=== PATIENT | female | born 1990 | race African-American/Black ===

== ENCOUNTER 2021-01-18 16:44 | Emergency (ER) | payer SELFPAY ==
--- NOTE | 2021-01-18 16:54 | ED.GENADULT ---
HPI - General Adult General Chief complaint: Skin/Abscess/Foreign Body Stated complaint: Breat Pain Time Seen by Provider: 01/18/21 16:54 Source: patient and RN notes reviewed Mode of arrival: ambulatory Limitations: no limitations History of Present Illness HPI narrative: 31 yo female presents to the [facility] with complaints of breast pain and a 2 cm red warm raised area to the bottom portion of breast approximately 6:00. Also has multiple cysts in the left axilla. Has not had any treatment in the past. Denies fevers. Related Data Allergies Allergy/AdvReac Type Severity Reaction Status Date / Time No Known Allergies Allergy Verified 01/18/21 17:08 Review of Systems Review of Systems: All systems reviewed & are unremarkable except as noted in HPI and below Constitutional: Constitutional: Reports no additional constitutional complaints, Denies chills and Denies fever(s) Eyes: Eyes: Reports no additional eye complaints ENT: Reports system reviewed and no additional complaints, except as documented Cardiovascular: Cardiovascular: Reports no additional cardiovascular complaints Respiratory: Respiratory: Reports no additional respiratory complaints Musculoskeletal: Musculoskeletal: Reports no additional musculoskeletal complaints Integumentary/Breasts: Skin/Breast: Reports as per HPI and Reports erythema (Left breast 6:00) Neurologic: Reports system reviewed and no additional complaints, except as documented Psychiatric: Psychiatric: Reports no additional psychiatric complaints Allergic/Immunologic: Allergic/Immunologic: Reports no additional allergic/immunologic complaints PMFSH Past Medical History Medical History (Updated 01/18/21 @ 19:50 by Talita Garcia) No significant past medical history Surgical History Surgical History (Updated 01/18/21 @ 19:50 by Talita Garcia) No significant past surgical history Social History Social History (Updated 01/18/21 @ 19:50 by Talita Garcia) Living arrangements: with family Comments At the time of my signature, I reviewed and agree with the nursing past medical, surgical, social, and family history. There is no relevant family history pertinent to the patient complaint. Exam Const: General: alert, awake and acute distress mild Nutritional Appearance: well nourished and obese Orientation/consciousness: patient oriented x3 Limitations: no limitations HENMT: Head: normal to inspection Eyes: Conjunctivae: conjunctivae normal Pupils: Equal, round and reactive pupils present Neck: Neck: normal visual inspection, no lymphadenopathy and no meningeal signs Chest: Chest palpation & inspection: normal inspection of the chest Resp: Effort & Inspection: normal respiratory effort Auscultation: clear to auscultation bilaterally Cardio: Rate: regular rate Rhythm: regular rhythm Back/Spine/Pelvis: Back: no CVA tenderness Skin: Other: Redness, warmth 6:00 left breast measuring 2 cm with fluctuance. Multiple cysts noted left axilla. Neuro: General: patient oriented x3, moves all extremities, no meningeal signs and no focal motor deficits Speech: normal speech Gait exam (Neuro): Normal gait present Extrem: General: normal to inspection Psych: Appearance: grossly normal and well kempt Mental Status: mental status grossly normal Affect: normal affect Attitude: cooperative Thought content: Yes Normal thought content present Course Course Emergency Course: Discharge instructions reviewed with patient, as well as provided in writing per nursing staff. The instructions also include specific and strict return/GO TO THE ER as well as f/u information. All questions have been answered, and the patient deny any further questions with discharge and discharge plan. Vital Signs Vital signs: Vital Signs Temperature 97.4 F L 01/18/21 16:55 Pulse Rate 79 01/18/21 16:55 Respiratory Rate 16 01/18/21 16:55 Blood Pressure 134/77 01/18/21 16:55 Pulse Ox
[2021-01-18 16:55] VITALS: BP 134/77; PULSE 79; RESP 16; TEMP 36.3; O2SAT 100
== END 2021-01-18 17:30 | disposition home or self-care (01) ==
PROVIDERS: Emergency Provider Nurse Practitioner
DX: L03.818 Cellulitis of other sites (principal); L73.2 Hidradenitis suppurativa
CPT/HCPCS: 10060; 87070; 87075; 87076; 87205; 99213; G0463

== ENCOUNTER 2021-01-25 19:59 | Emergency (ER) | payer OTHER, SELFPAY ==
--- NOTE | ~2021-01-25 | XR_ITS ---
XR lumbar spine 2-3V 01/25/2021 21:31 Indication: Low back pain Procedure: 3 views lumbar spine Comparison: No prior studies for comparison. Findings: Vertebral body heights are maintained. No fracture, subluxation or dislocation. No evidence for spondylolysis or spondylolisthesis. Pedicles intact. Sacral foramen are symmetric. Impression: 1: No acute abnormality of the lumbar spine. Reviewed, dictated and finalized at location A. [employer] Impression: 1: No acute abnormality of the lumbar spine.
[2021-01-25 20:13] VITALS: BP 118/82; PULSE 85; RESP 18; TEMP 37.1; O2SAT 96
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
[2021-01-25] MEDS: KETOROLAC 30 MG/ML VIAL (*BKC) IM (21:46)
[2021-01-25 22:25] VITALS: BP 141/74; PULSE 74; RESP 16; O2SAT 99
== END 2021-01-25 22:28 | disposition home or self-care (01) ==
PROVIDERS: Emergency Provider Emergency Medicine
DX: S39.012A Strain of muscle, fascia and tendon of lower back, initial encounter (principal); V18.4XXA Pedal cycle driver injured in noncollision transport accident in traffic accident, initial encounter; Y93.55 Activity, bike riding
CPT/HCPCS: 72100; 96372; 99283; J1885

== ENCOUNTER 2021-09-17 13:34 | Emergency (ER) | payer SELFPAY ==
[2021-09-17 13:44] VITALS: BP 145/91; PULSE 114; RESP 16; TEMP 36.3; O2SAT 99
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
== END 2021-09-17 14:00 | disposition home or self-care (01) ==
LOC: EXPCOLL 13:38
PROVIDERS: Emergency Provider Nurse Practitioner
DX: K92.1 Melena (principal); G89.29 Other chronic pain; M54.50 Low back pain, unspecified
CPT/HCPCS: 99211; G0463

== ENCOUNTER 2021-09-17 14:43 | Emergency (ER) | payer SELFPAY ==
[2021-09-17 14:58] VITALS: BP 145/96; PULSE 108; RESP 16; TEMP 36.5; O2SAT 99
[2021-09-17 15:37] LABS: Alanine Aminotransferase 31 U/L (6-35); Albumin Level 4.7 g/dL (3.5-5.1); Alkaline Phosphatase 57 U/L (38-126); Anion Gap 12 mmol/L (8-16); Aspartate Amino Transferase 26 U/L (14-36); Bilirubin,Total 0.4 mg/dL (0.2-1.3); Blood Urea Nitrogen 6 mg/dL (7-17); Calcium 9.7 mg/dL (8.4-10.2); Carbon Dioxide 24 mmol/L (22-30); Chloride 101 mmol/L (98-107); Estimated CRCL calculation 150 ml/min; Estimated Glomerular Filt Rate > 60; Glucose 101 mg/dL (65-110); Sodium 137 mmol/L (137-145)
[2021-09-17 15:47] LABS: INR 1.1; Prothrombin Time 13.3 Seconds (11.1-14.7)
[2021-09-17 15:48] LABS: Basophils Percent Auto 0.5 % (0.2-1.2); Eosinophils Absolute Auto 0.1 K/mm3 (0-0.3); Eosinophils Percent Auto 0.7 % (0-4.4); Hematocrit 42.9 % (37.0-47.0); Immature Granulocyte Absolute 0.02 K/mm3 (0.00-0.031); Immature Granulocyte Percent A 0.2 % (0-0.5); Mean Corpuscular HGB Conc 32.6 g/dl (32-36); Mean Corpuscular Hemoglobin 30.5 pg (26-34); Mean Corpuscular Volume 93.5 fl (80-100); Mean Platelet Volume 10.6 fl (7.4-10.4); Monocytes Absolute Auto 0.6 K/mm3 (0.1-0.6); Monocytes Percent Auto 6.9 % (2.6-8.5); Neutrophils Absolute Auto 4.2 K/mm3 (1.3-6.7); Neutrophils Percent Auto 50.7 % (45.5-73.1); Partial Thromboplastin Time 27.9 SECONDS (22.3-36.8); Platelet Count Result 283 k/mm3 (150-375); Red Blood Count 4.59 M/mm3 (4.2-5.4); Red Cell Distribution Width 12.7 % (11.5-14.5); White Blood Count 8.3 K/mm3 (4.5-10.0)
[2021-09-17 16:39] VITALS: BP 158/106; PULSE 102; RESP 19; O2SAT 100
--- NOTE | 2021-09-17 17:16 | ED.GENADULT ---
HPI - General Adult General Chief complaint: Unspecified Stated complaint: bloody stool/back pain from urgent care Time Seen by Provider: 09/17/21 16:49 History of Present Illness HPI narrative: 31-year-old female presents for low back pain which been present for weeks. Pain worsens with movement. No myelopathy, numbness, tingling, incontinence. Related Data Allergies Allergy/AdvReac Type Severity Reaction Status Date / Time No Known Allergies Allergy Verified 09/17/21 16:38 Review of Systems Review of Systems: CONSTITUTIONAL: Denies fever, chills, or sweats. EYES: Denies visual changes, redness, or discharge. ENT: Denies rhinorrhea, congestion, sore throat, or otalgia. CARDIOVASCULAR: Denies chest pain, palpitations, or edema. RESPIRATORY: Denies cough or dyspnea. GASTROINTESTINAL: Denies abdominal pain, nausea, vomiting, or diarrhea. GENITOURINARY: Denies dysuria or hematuria. SKIN: Denies rash or itching. MUSCULOSKELETAL: Denies back pain, joint pain, or myalgia. NEUROLOGIC: Denies headache, numbness, or weakness. PSYCHIATRIC: Denies anxiety or depression. [facility] Past Medical History Medical History No significant past medical history Surgical History Surgical History No significant past surgical history Social History Social History Substance use: never Exam Narrative: GENERAL: Well-appearing, well-nourished, and in no acute distress. HEAD: Normocephalic, atraumatic. EYES: PERRLA and EOMI. ENT: Nares clear, no rhinorrhea or epistaxis. Mucous membranes moist. NECK: Supple. CHEST: Clear to auscultation. No respiratory distress. HEART: Regular rate and rhythm. No murmur heard. Normal peripheral pulses. ABDOMEN: Soft, nontender, nondistended, normal active bowel sounds. EXTREMITIES: Normal range of motion. No edema. SKIN: Warm, dry, no rash. NEURO: No focal deficits. Alert and oriented x3. PSYCH: Normal mood and affect. Course Vital Signs Vital signs: Vital Signs Temperature 97.7 F 09/17/21 14:58 Pulse Rate 108 H 09/17/21 14:58 Respiratory Rate 16 09/17/21 14:58 Blood Pressure 145/96 H 09/17/21 14:58 Pulse Oximetry 99 09/17/21 14:58 Oxygen Delivery Room Air 09/17/21 14:58 Temperature 97.7 F 09/17/21 14:58 Pulse Rate 102 H 09/17/21 16:39 Respiratory Rate 19 09/17/21 16:39 Blood Pressure 158/106 H 09/17/21 16:39 Pulse Oximetry 100 09/17/21 16:39 Oxygen Delivery Room Air 09/17/21 14:58 Medical Decision Making MDM Narrative Medical decision making narrative: Musculoskeletal back pain with no back pain red flags. UA is unremarkable and patient is stable for discharge home. Vital Signs Vital Signs: Vital Signs Temperature 97.7 F 09/17/21 14:58 Pulse Rate 108 H 09/17/21 14:58 Respiratory Rate 16 09/17/21 14:58 Blood Pressure 145/96 H 09/17/21 14:58 Pulse Oximetry 99 09/17/21 14:58 Oxygen Delivery Room Air 09/17/21 14:58 Temperature 97.7 F 09/17/21 14:58 Pulse Rate 102 H 09/17/21 16:39 Respiratory Rate 19 09/17/21 16:39 Blood Pressure 158/106 H 09/17/21 16:39 Pulse Oximetry 100 09/17/21 16:39 Oxygen Delivery Room Air 09/17/21 14:58 Lab Data Result diagrams: 09/17/21 15:21 09/17/21 15:21 Labs: Lab Results 09/17/21 09/17/21 09/17/21 Range/Units 15:21 15:21 15:21 WBC 8.3 (4.5-10.0) K/mm3 RBC 4.59 (4.2-5.4) M/mm3 Hgb 14.0 (12.0-15.0) g/dL Hct 42.9 (37.0-47.0) % MCV 93.5 (80-100) fl MCH 30.5 (26-34) pg MCHC 32.6 (32-36) g/dl RDW 12.7 (11.5-14.5) % Plt Count 283 (150-375) k/mm3 MPV 10.6 H (7.4-10.4) fl Immature Gran % (Auto) 0.2 (0-0.5) % Neut % (Auto) 50.7 (45.5-73.1) % Lymph % (Auto) 41.0 (18.3-44.2) % [place] % (Auto) 6.9 (2.6-8.5) % Eos %
[2021-09-17] MEDS: diazePAM (*CRX) 5 MG TABLET PO (17:22)
[2021-09-17] MEDS: KETOROLAC 30 MG/ML VIAL (*BKC) 15 MG IM (17:36)
[2021-09-17 17:46] LABS: Appearance Urine Clear (Clear); Bilirubin Urine Negative (Negative); Blood Urine Negative (Negative); Color Urine Yellow (Yellow); Glucose Urine UA Negative (Negative); Ketones Urine Negative (Negative); Leukocyte Esterase Ur Negative LEU/UL (Negative); Nitrate Urine Negative (Negative); Protein Urine Negative (Negative); Urobilinogen Urine 0.2 mg/dL (<2.0); pH Urine 6.5 (5.0-9.0)
[2021-09-17 17:47] LABS: Add Urine Microscopic? NO
== END 2021-09-17 18:49 | disposition home or self-care (01) ==
PROVIDERS: Emergency Medicine; Emergency Provider Emergency Medicine
DX: M54.50 Low back pain, unspecified (principal); G89.29 Other chronic pain
CPT/HCPCS: 36415; 80053; 81003; 81025; 85025; 85610; 85730; 86850; 86900; 86901; 96372; 96374; 99284; A9270; J1100; J1885

== ENCOUNTER 2022-04-02 17:52 | Emergency (ER) | payer SELFPAY ==
[2022-04-02 17:54] VITALS: BP 143/91; PULSE 115; RESP 18; TEMP 36.6; O2SAT 97
--- NOTE | 2022-04-02 19:14 | PC.NURSE ---
1909 Assumed pt care from RICKIE Shipman
--- NOTE | 2022-04-02 19:41 | ED.GENADULT ---
HPI - General Adult General Chief complaint: Neck Pain/Injury Stated complaint: neck pain Time Seen by Provider: 04/02/22 18:29 History of Present Illness HPI narrative: This is a 32-year-old female presents with chief complaint of neck pain and paresthesias. She states this has been going on for 2 weeks. Longstanding history of MSK lower back and hip problems. She does note that these paresthesias are worse after she wakes up. 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 Patient notes that range of motion of the neck makes her neck pain worse. She denies weakness in the right upper extremity. Denies chest pain, shortness of breath, abdominal pain, nausea, vomiting. Denies headache. Denies trauma, fevers, chills, IV drug use, long-term steroids, cancer history. No red flag signs today. requesting work note. Related Data Allergies Allergy/AdvReac Type Severity Reaction Status Date / Time No Known Allergies Allergy Verified 04/02/22 17:56 Review of Systems Review of Systems: CONSTITUTIONAL: Denies fever, chills, or sweats. SKIN: Denies rash or itching. MUSCULOSKELETAL: Denies back pain, joint pain, or myalgia. NEUROLOGIC: Denies headache, numbness, dizziness, or weakness. PMFSH Past Medical History Medical History No significant past medical history Surgical History Surgical History No significant past surgical history Social History Social History Substance use: never Living arrangements: with family Occupation/Education: occupation Exam Narrative: GENERAL: Well-appearing, well-nourished, and in no acute distress. HEAD: Normocephalic, atraumatic. EYES: PERRLA and EOMI. EXTREMITIES: Right upper extremity range of motion somewhat limited due to pain in the neck. Normal range of motion in the left upper extremity. No edema. Tinel's is negative at the wrist and cubital tunnel. SKIN: Warm, dry, no rash. NEURO: Alert and oriented x3. No focal deficits. 5 out of 5 strength in upper extremities. Subjective sensation alteration in the right upper extremity along the dorsal forearm. PSYCH: Normal mood and affect. Course Vital Signs Vital signs: Vital Signs Temperature 97.8 F 04/02/22 17:54 Pulse Rate 115 H 04/02/22 17:54 Respiratory Rate 18 04/02/22 17:54 Blood Pressure 143/91 H 04/02/22 17:54 Pulse Oximetry 97 04/02/22 17:54 Oxygen Delivery Room Air 04/02/22 17:54 Temperature 97.8 F 04/02/22 17:54 Pulse Rate 115 H 04/02/22 17:54 Respiratory Rate 18 04/02/22 17:54 Blood Pressure 143/91 H 04/02/22 17:54 Pulse Oximetry 97 04/02/22 17:54 Oxygen Delivery Room Air 04/02/22 17:54 Medical Decision Making MDM Narrative Medical decision making narrative: This is a 32-year-old female who presents with chief complaint of neck pain and right upper extremity paresthesias. This been going on for a couple of weeks after she started a new manual labor job. She has no red flags. I feel that her paresthesias are a result of cervical radiculopathy. We will prescribe a tizanidine for symptomatic relief. Encouraged her to take Tylenol and ibuprofen every 4 hours for pain control. Encouraged her to follow-up closely with PCP as she may need physical therapy or referral to her neurosurgeon if she develops weakness. Patient is understanding and agreeable with the plan for discharge Patient was discussed with Dr. Spivey who also agrees with plan for discharge. Vital Signs Vital Signs: Vital Signs Temperature 97.8 F 04/02/22 17:54 Pulse Rate 115 H 04/02/22 17:54 Respiratory Rate 18 04/02/22 17:54 Blood Pressure 143/91 H 04/02/22 17:54 Pulse Oximetry 97 04/02/22 17:54 Oxygen Delivery Room Air 04/02/22 17:54 Temperature 97.8
== END 2022-04-02 20:10 | disposition home or self-care (01) ==
PROVIDERS: Emergency Provider Physician Assistant
DX: M54.12 Radiculopathy, cervical region (principal); S16.1XXA Strain of muscle, fascia and tendon at neck level, initial encounter; X50.9XXA Other and unspecified overexertion or strenuous movements or postures, initial encounter
CPT/HCPCS: 99283

== ENCOUNTER 2022-07-06 20:56 | Emergency (ER) | payer MEDICARE, MEDICAID, SELFPAY ==
--- NOTE | ~2022-07-06 | XR_ITS ---
EXAM: XR hip RT 2V w AP pelvis DATE: 07/06/2022 22:26 HISTORY: R hip pain after crush injury . COMPARISON: None available. FINDINGS: Normal mineralization. No fracture or dislocation. No lytic or blastic lesion. Joint space s are maintained. No erosion or periosteal change. Soft tissues within normal limits. IMPRESSION: No acute osseous finding in the pelvis or right hip. Reviewed, dictated and finalized at location K.
--- NOTE | ~2022-07-06 | XR_ITS ---
EXAMINATION: XR ribs RT 2V w CXR 2V Exam Date/Time: 07/06/2022 21:55 CDT HISTORY: pain, injury Comparison: None available. RESULT: Lines, tubes, and devices: None. Lungs and pleura: Clear. Cardiothymic silhouette: Stable. Other: No acute upper abdominal finding. Slight angular deformity at the left eighth costochondral j unction. IMPRESSION: No acute cardiopulmonary process. Slight angular deformity at the left eighth costochondral junction, may represent a costochondral fracture, correlate with point tenderness. Reviewed, dictated and finalized at location K. IMPRESSION: No acute cardiopulmonary process. Slight angular deformity at the left eighth c ostochondral junction, may represent a costochondral fracture, correlate with p oint tenderness.
--- NOTE | ~2022-07-06 | CT_ITS ---
EXAMINATION: CT diagnostic chest wo con DATE: 07/06/2022 22:41 INDICATION: crush injury to chest TECHNIQUE: Computed tomography (CT) of the chest was performed with 100 mL Omnipaque-350 intravenous contrast. Automated exposure control and iterative reconstruction technique were employed. The dose-l ength product was 583.87 mGy-cm. COMPARISON: X-ray right RIBS and chest, same date. FINDINGS: CHEST: Thoracic aorta: No significant dilation or calcification. Lung parenchyma and airways: Lungs and airways are clear. Thoracic inlet, axillae and chest wall: No thyroid or soft tissue mass. No axillary lymphadenopathy. Mediastinum: No mass or lymphadenopathy. Heart and pericardium: Normal heart size. No pericardial effusion. Coronary artery calcifications: . Pleura: No effusion or mass. Upper abdomen: No significant finding. Thoracic bones: No acute osseous finding in the chest. IMPRESSION: No acute thoracic process detected. No costochondral abnormality detected at the right eighth rib, th e prior radiographic findings were artifactual. Reviewed, dictated and finalized at location K. IMPRESSION: No acute thoracic process detected. No costochondral abnormality detected at th e right eighth rib, the prior radiographic findings were artifactual.
[2022-07-06 21:02] VITALS: BP 145/82; PULSE 119; RESP 20; TEMP 36.8; O2SAT 98
[2022-07-06 22:12] VITALS: BP 158/118; PULSE 103; RESP 18; TEMP 36.4; O2SAT 96
[2022-07-06 22:14] VITALS: O2SAT 96
--- NOTE | 2022-07-06 22:17 | ED.BACK ---
HPI - Back Pain/Injury General Chief Complaint: Back Pain/Injury Stated Complaint: upper back/abd pain Time Seen by Provider: 07/06/22 22:08 History of Present Illness HPI Narrative: Patient is a 32-year-old female here for evaluation of right side pain after an injury at work today. Patient states that she was standing in her usual state of health when a forklift drove into her right side. Since then, she has had pain with inspiration in her right lateral ribs. She is also reported some right hip pain. Has been able to ambulate. Has not taken any medicine for pain. Denies any shortness of breath, hemoptysis, central chest pressure. No head injury. Related Data Allergies Allergy/AdvReac Type Severity Reaction Status Date / Time No Known Allergies Allergy Verified 04/02/22 17:56 Review of Systems Review of Systems: Gen.: Denies fevers or chills Eyes: Denies eye pain or visual change ENT: Denies congestion Respiratory: Denies shortness of breath or cough CV: Denies chest pain or palpitations GI: Denies abdominal pain nausea, emesis or diarrhea denies burning, urgency, frequency or hematuria Musculoskeletal: Reports right side pain. Reports right hip pain. Denies back pain or muscle pain Neuro: Denies numbness, tingling, weakness or focal weakness Skin: Denies rash Except as documented, all other systems reviewed and negative PMFSH Past Medical History Medical History No significant past medical history Surgical History Surgical History No significant past surgical history Social History Social History Substance use: never Living arrangements: with family Occupation/Education: occupation Exam Narrative: APPEARANCE: Well appearing, no pain in distress, well-nourished. Head: Normocephalic and atraumatic. EYES: PERRLA/EOMI, conjunctivae clear NOSE: No nasal drainage EARS: External ear normal in appearance THROAT: Oropharynx is clear. Mucous membranes are moist. NECK: Supple. No adenopathy, no masses. RESPIRATORY: Airway patent, respirations nonlabored. Clear to auscultation bilaterally, no rales, rhonchi, wheezing. CARDIOVASCULAR: Regular rate and rhythm without murmurs, rubs, or gallops. ABDOMINAL: Normoactive bowel sounds. Soft, nontender, nondistended. No rebound tenderness or guarding. MUSCULOSKELETAL: There is tenderness palpation along the right inferior lateral ribs. There is slight tenderness to palpation along the right hip. NEURO: Normal speech. No focal neurologic deficits. SKIN: Skin is warm and dry. No rashes. PSYCHIATRIC: Normal affect/mood.. Course Vital Signs Vital signs: Vital Signs Temperature 98.2 F 07/06/22 21:02 Pulse Rate 119 H 07/06/22 21:02 Respiratory Rate 20 07/06/22 21:02 Blood Pressure 145/82 H 07/06/22 21:02 Pulse Oximetry 98 07/06/22 21:02 Oxygen Delivery Room Air 07/06/22 21:02 Temperature 97.6 F 07/06/22 22:12 Pulse Rate 98 07/06/22 23:14 Respiratory Rate 16 07/06/22 23:14 Blood Pressure 139/90 07/06/22 23:14 Pulse Oximetry 97 07/06/22 23:14 Oxygen Delivery Room Air 07/06/22 22:14 MDM - Back Pain/Injury MDM Narrative Medical decision making narrative: 32-year-old female here for evaluation of right-sided rib and hip pain after an injury at work today. There is tenderness to palpation along the right lateral ribs; she has breath sounds throughout and no flail chest deformity. No abnormalities noted on the chest CT or hip or pelvis x-ray. Patient feeling improved after pain meds. Likely contusion. Will send home with incentive spirometer and PMD follow-up. Discharge Plan Discharge Clinical Impression: Rib pain on right side Patient Disposition: Home, Self-Care Condition: Stable Instructions: Antibiotic Form, Rib Co
[2022-07-06] MEDS: LIDOCAINE 5% PATCH 1 PATCH TRANSDERM (22:36)
[2022-07-06] MEDS: ACETAMINOPHEN 325 MG TABLET 650 MG PO (22:36)
[2022-07-06] MEDS: methocarbamoL 500 MG TABLET PO (22:37)
[2022-07-06 23:14] VITALS: BP 139/90; PULSE 98; RESP 16; O2SAT 97
[2022-07-06] MEDS: IBUPROFEN 600 MG TABLET PO (23:20)
== END 2022-07-06 23:55 | disposition home or self-care (01) ==
PROVIDERS: Emergency Provider Physician Assistant
DX: S29.9XXA Unspecified injury of thorax, initial encounter (principal); S79.911A Unspecified injury of right hip, initial encounter; W24.0XXA Contact with lifting devices, not elsewhere classified, initial encounter
CPT/HCPCS: 71046; 71100; 71250; 73502; 99284; A9270

== ENCOUNTER 2022-11-12 18:31 | Emergency (ER) | payer MEDICARE, MEDICAID, SELFPAY ==
[2022-11-12 18:42] VITALS: BP 126/64; PULSE 91; RESP 18; TEMP 36.9; O2SAT 99
--- NOTE | 2022-11-12 18:44 | ED.SKABFB ---
HPI - Skin/Abscess/Foreign Bdy General Chief complaint: Skin/Abscess/Foreign Body Stated complaint: Insect Bite Time Seen by Provider: 11/12/22 18:52 Source: patient and RN notes reviewed Mode of arrival: ambulatory Limitations: no limitations History of Present Illness HPI narrative: 32-year-old female presents concern for insect sting or bite to her right foot. She reports she felt something bite her. Reports she then felt stinging/burning sensation in noticed a blister on her 2nd toe. She denies fever, aches, chills, sweats. MD complaint: insect bite/sting Related Data Allergies Allergy/AdvReac Type Severity Reaction Status Date / Time No Known Allergies Allergy Verified 11/12/22 18:41 Review of Systems Review of Systems: CONSTITUTIONAL: Denies malaise, chills, sweats, or fever. EYES: Denies redness, or discharge. ENT: Denies swollen lips, swollen tongue CARDIOVASCULAR: Denies chest pain, palpitations, or edema. RESPIRATORY: Denies cough or dyspnea. GASTROINTESTINAL: Denies abdominal pain, nausea, vomiting SKIN: Reports blister to the 2nd toe of the right foot MUSCULOSKELETAL: Reports burning pain to the 2nd toe of the right foot NEUROLOGIC: Denies headache. All systems reviewed & are unremarkable except as noted in HPI and below PMFSH Past Medical History Medical History No significant past medical history Surgical History Surgical History No significant past surgical history Social History Social History Substance use: never Living arrangements: with family Occupation/Education: occupation Comments At time of signature, agree with nursing past medical, surgical, social and family history. There is no relevant family history pertinent to the presenting complaint Exam Narrative: GENERAL: Well-appearing, well-nourished, and in no acute distress. HEAD: Normocephalic, atraumatic. EYES: PERRLA, conjunctivae clear, and EOMI. ENT: Mucous membranes moist. Oropharynx without edema, erythema or lesions. NECK: Supple. No lymphadenopathy CHEST: Clear to auscultation. No respiratory distress. HEART: Regular rate and rhythm. SKIN: Warm, dry. Proximally 0.5 cm blister with clear fluid, intact noted to the dorsal aspect of the 2nd digit of the right foot with linear erythema on the dorsal toe not extending into the foot NEURO: Alert and oriented x3. PSYCH: Normal mood and affect Course Course Emergency Course: Patient is aware of diagnosis, understands and agrees to treatment plan. Anticipatory guidance given. Patient agrees to follow-up as directed and is aware of reasons to seek care at the emergency department. Portions of this record may have been created with voice recognition software Level of Care: Express Care Visit Vital Signs Vital signs: Reviewed. MDM - Skin/Abscess/Foreign Bdy MDM Narrative Medical decision making narrative: Does not appear at this time to be erythema multiforme, bullous, SJS, TEN; no evidence at this time to suggest RMSF, endocarditis or Lyme disease; patient looks well, nontoxic and is tolerating oral intake; no neurologic signs or symptoms; no headache, photophobia or neck pain; afebrile; appropriate for initial outpatient treatment; discussed the importance of follow-up, patient agrees; question, viral exanthema, contact dermatitis, allergic dermatitis, eczema, urticaria, insect sting, brown recluse bite. No soft palate or uvula edema, no tongue, lip edema or other mucosal involvement, no respiratory compromise, no stridor, no wheezing, no wheezing, no history of syncope, no hypotension, no nausea, vomiting, or diarrhea. Instructed patient to go to nearest ER immediately for any worsening symptoms including but not limited to: fever, spreading rash, pain, sore throat, headache, dizziness, chest
== END 2022-11-12 19:04 | disposition home or self-care (01) ==
PROVIDERS: Emergency Provider Nurse Practitioner
DX: S90.861A Insect bite (nonvenomous), right foot, initial encounter (principal); W57.XXXA Bitten or stung by nonvenomous insect and other nonvenomous arthropods, initial encounter
CPT/HCPCS: 99213; G0463

== ENCOUNTER 2023-03-10 13:10 | Emergency (ER) | payer OTHER, SELFPAY ==
[2023-03-10 13:23] VITALS: BP 136/97; PULSE 83; RESP 16; TEMP 36.8; O2SAT 99
--- NOTE | 2023-03-10 13:29 | ED.GENADULT ---
HPI - General Adult General Chief complaint: Abdominal Pain Stated complaint: stomach pain, nausea Time Seen by Provider: 03/10/23 13:29 Source: patient Mode of arrival: ambulatory Limitations: no limitations History of Present Illness HPI narrative: 33 yo F presents with c/o N,V, increased ABD noises , chills for the past 4 days. Denies ABD pain. No diarrhea. Still able to eat and drink. Requesting work note. all systems reviewed and negative except as noted above. Related Data Allergies Allergy/AdvReac Type Severity Reaction Status Date / Time No Known Allergies Allergy Verified 11/12/22 18:41 Review of Systems Review of Systems: CONSTITUTIONAL: Denies fever, chills, or sweats. EYES: Denies visual changes, redness, or discharge. ENT: Denies rhinorrhea, congestion, sore throat, or otalgia. CARDIOVASCULAR: Denies chest pain, palpitations, or edema. RESPIRATORY: Denies cough or dyspnea. GASTROINTESTINAL: Denies abdominal pain . Reports nausea, vomiting. Denies diarrhea. GENITOURINARY: Denies dysuria or hematuria. SKIN: Denies rash or itching. MUSCULOSKELETAL: Denies back pain, joint pain, or myalgia. NEUROLOGIC: Denies headache, numbness, or weakness. PSYCHIATRIC: Denies anxiety or depression. All other systems reviewed are negative, except as documented in HPI. PMFSH Past Medical History Medical History No significant past medical history Surgical History Surgical History No significant past surgical history Social History Social History Substance use: never Living arrangements: with family Occupation/Education: occupation Comments At time of signature, agree with nursing past medical, surgical, social and family history. There is no relevant family history pertinent to the presenting complaint. Exam Narrative: GENERAL: This is a well-nourished, well-developed patient, in no apparent distress. HEAD: normocephalic, atraumatic. EYES: PERRL. Sclera clear/white. Vision is grossly intact. EARS: External ears normal, auditory canals clear and without drainage, TMs normal without perforation. Hearing grossly intact. NOSE: External nose normal with no obvious nasal discharge, nares without redness, no rhinorrhea. THROAT: Mucous membranes moist, posterior pharynx clear. NECK: Neck supple, non-tender without lymphadenopathy, masses or thyromegaly. CARDIOVASCULAR: Regular rate and rhythm without murmurs, gallops, or rubs. RESPIRATORY: Clear to auscultation. Breath sounds equal bilaterally. No wheezes, rales, or rhonchi. GASTROINTESTINAL: Abdomen soft, non-tender, nondistended. Bowel sounds are hyperactive. No hepato-splenomegaly, or palpable masses. No guarding. SKIN: warm, Dry, intact with no suspicious lesions or rash, good texture and turgor. NEURO: awake, alert, and oriented to person, place and time. There were no obvious focal neurologic abnormalities. EXTREMITIES: No joint tenderness, effusion, or edema noted. Course Course Level of Care: Express Care Visit Vital Signs Vital signs: Vital Signs Temperature 36.8 C 03/10/23 13:23 Pulse Rate 83 03/10/23 13:23 Respiratory Rate 16 03/10/23 13:23 Blood Pressure 136/97 H 03/10/23 13:23 Pulse Oximetry 99 03/10/23 13:23 Oxygen Delivery Room Air 03/10/23 13:23 Temperature 36.8 C 03/10/23 13:23 Pulse Rate 83 03/10/23 13:23 Respiratory Rate 16 03/10/23 13:23 Blood Pressure 136/97 H 03/10/23 13:23 Pulse Oximetry 99 03/10/23 13:23 Oxygen Delivery Room Air 03/10/23 13:23 reviewed Medical Decision Making MDM Narrative Medical decision making narrative: vital signs normal. No abdominal tenderness on exam. Patient belching exam room. Given Zofran and states nausea improved. Requesting work note. Recommend follow-up with otis
[2023-03-10] MEDS: ONDANSETRON HCL ODT 4 MG TABLET SUBLINGUAL (13:43)
== END 2023-03-10 14:15 | disposition home or self-care (01) ==
PROVIDERS: Emergency Provider Nurse Practitioner Family
DX: R11.2 Nausea with vomiting, unspecified (principal); Z20.822 Contact with and (suspected) exposure to COVID-19
CPT/HCPCS: 87426; 87804; 99213; A9270; G0463

== ENCOUNTER 2023-05-01 16:18 | Emergency (ER) | payer OTHER, SELFPAY ==
--- NOTE | ~2023-05-01 | XR_ITS ---
EXAMINATION: XR finger 3rd LT min 2V DATE: 05/01/2023 16:38 INDICATION: Left third digit injury TECHNIQUE: Dorsal palmar, lateral and oblique views of the left third digit were obtained COMPARISON: None FINDINGS: Minimally displaced small fracture involving the distal cortical rim of the tuft of the left third di stal phalanx. No other fractures identified. Alignment remains essentially anatomic. Joint spaces are normal. There is an irregular contour to the base of the nail which suggests a nailbed injury which if present would render this equivalent of an open/compound fracture at increased risk of infection. Soft tissues are otherwise unremarkable. IMPRESSION: 1. Minimally displaced fracture at the tip of the tuft of the left third distal phalanx. There appear s to be likely nailbed injury which if present would generally be considered equivalent of an open/co mpound fracture at increased risk of infection. Reviewed, dictated and finalized at location A. IMPRESSION: 1. Minimally displaced fracture at the tip of the tuft of the left third distal phalanx. There appears to be likely nailbed injury which if present would gene rally be considered equivalent of an open/compound fracture at increased risk o f infection.
[2023-05-01 16:26] VITALS: BP 126/74; PULSE 86; RESP 16; TEMP 37.2; O2SAT 98
--- NOTE | 2023-05-01 16:26 | ED.UPPEXIN ---
HPI - Extremity Injury (Upper) General Chief Complaint: Extremity Injury, Lower Stated Complaint: left finger injury Time Seen by Provider: 05/01/23 16:56 Source: patient and RN notes reviewed Mode of arrival: ambulatory Limitations: no limitations History of Present Illness HPI narrative: 33-year-old female presents with concern for injury to the 3rd digit of the left hand. Reports last night she slammed in a door. Reports disruption of the nail. MD complaint: injury to: left and finger Related Data Allergies Allergy/AdvReac Type Severity Reaction Status Date / Time No Known Allergies Allergy Verified 11/12/22 18:41 Review of Systems Review of Systems: CONSTITUTIONAL: Denies malaise, chills, sweats, or fever. SKIN: Denies rash or itching, open skin, laceration, abrasion, redness, warmth MUSCULOSKELETAL: Reports injury to the 3rd digit of the left hand NEUROLOGIC: Denies numbness, weakness All systems reviewed & are unremarkable except as noted in HPI and below PMFSH Past Medical History Medical History No significant past medical history Surgical History Surgical History No significant past surgical history Social History Social History Substance use: never Living arrangements: with family Occupation/Education: occupation Comments At time of signature, agree with nursing past medical, surgical, social and family history. There is no relevant family history pertinent to the presenting complaint Exam Narrative: GENERAL: Well-appearing, well-nourished, and in no acute distress. HEAD: Normocephalic, atraumatic. EYES: PERRLA, conjunctivae clear, and EOMI. ENT: Mucous membranes moist. NECK: Supple. No lymphadenopathy CHEST: Clear to auscultation. No respiratory distress. HEART: Regular rate and rhythm. SKIN: Warm, dry. Nail bed disruption noted to the 3rd digit of the left hand with mild distal edema, tenderness to the digit. No active bleeding NEURO: Alert and oriented x3. PSYCH: Normal mood and affect Course Course Emergency Course: Patient is aware of diagnosis, understands and agrees to treatment plan. Anticipatory guidance given. Patient agrees to follow-up as directed and is aware of reasons to seek care at the emergency department. Portions of this record may have been created with voice recognition software Level of Care: Express Care Visit Vital Signs Vital signs: Reviewed. MDM - Extremity Injury (Upper) MDM Narrative Medical decision making narrative: Patients injury and pain is consistent with musculoskeletal etiology. No signs of neurological or vascular compromise on exam. Compartments and tissues are soft without signs of compartment syndrome. Pain is felt appropriate for further evaluation on an outpatient basis. Imaging Data Radiologist's impression: EXAMINATION: XR finger 3rd LT min 2V DATE: 05/01/2023 16:38 INDICATION: Left third digit injury TECHNIQUE: Dorsal palmar, lateral and oblique views of the left third digit were obtained COMPARISON: None FINDINGS: Minimally displaced small fracture involving the distal cortical rim of the tuft of the left third distal phalanx. No other fractures identified. Alignment remains essentially anatomic. Joint spaces are normal. There is an irregular contour to the base of the nail which suggests a nailbed injury which if present would render this equivalent of an open/compound fracture at increased risk of infection. Soft tissues are otherwise unremarkable. IMPRESSION: 1. Minimally displaced fracture at the tip of the tuft of the left third distal phalanx. There appears to be likely nailbed injury which if present would generally be considered equivalent of an open/compound fracture at increased risk of infection. Critical Care Time Critical Care
== END 2023-05-01 17:29 | disposition home or self-care (01) ==
PROVIDERS: Emergency Provider Nurse Practitioner
DX: S62.633B Displaced fracture of distal phalanx of left middle finger, initial encounter for open fracture (principal); X58.XXXA Exposure to other specified factors, initial encounter
CPT/HCPCS: 29130; 73140; 99214; G0463